=== PATIENT | male | born 1960 | race Caucasian/White ===

== ENCOUNTER 2018-03-04 12:38 | Emergency (ER) | payer OTHER ==
[~2018-03-04] VITALS: Ht 167.6 cm; Wt 84.4 kg
[2018-03-04 12:47] VITALS: Ht 167.6 cm; Wt 84.4 kg
[2018-03-04 13:21] VITALS: BP 141/104
== END 2018-03-04 13:21 | disposition home or self-care (01) ==
LOC: ED 12:38
DX: T23.262A Burn of second degree of back of left hand, initial encounter (principal); X12.XXXA Contact with other hot fluids, initial encounter; Y93.89 Activity, other specified; Y92.89 Other specified places as the place of occurrence of the external cause; Y99.8 Other external cause status
CPT/HCPCS: J3010